=== PATIENT | male | born 1985 | race Caucasian/White ===

== ENCOUNTER 2021-12-09 16:59 | Emergency (ER) | payer SELFPAY ==
[2021-12-09 17:36] VITALS: BP 148/67; PULSE 105; RESP 18; TEMP 37; O2SAT 100; BMI 26.1
[2021-12-09 18:33] LABS: MANUAL DIFF FLAG NO
[2021-12-09 18:37] LABS: Basophils Percent Auto 0.3 % (0-2); Eosinophils Absolute Auto 0.1 X10*3/uL (0.0-0.4); Eosinophils Percent Auto 1.2 % (0-4); Imm Gran Abs Auto 0.04 X10*3/uL (0.00-0.03); Imm Gran Pct Auto 0.3 % (0.0-0.4); Lymphocytes Absolute Auto 2.6 X10*3/uL (1.2-4.9); Lymphocytes Percent Auto 21.7 % (20-40); Mean Corpuscular HGB Conc 33.3 g/dl (31.0-36.0); Mean Corpuscular Hemoglobin 31.5 pg (27.0-33.0); Mean Corpuscular Volume 94.4 fL (80.0-98.0); Mean Platelet Volume 9.5 fL (9.4-12.4); Monocytes Absolute Auto 1.2 X10*3/uL (0.1-1.2); Monocytes Percent Auto 9.7 % (2-11); Neutrophils Absolute Auto 8.1 x10*3/uL (2.0-8.3); Neutrophils Percent Auto 66.8 % (45-73); Platelet Count 269 X10*3/uL (160-400); Red Blood Count 5.72 X10*6/uL (4.60-5.80); Red Cell Distribution Width 11.9 % (11.0-16.0); White Blood Count 12.1 X10*3/uL (4.8-10.8)
[2021-12-09 18:58] LABS: Anion Gap 14 (12-20); Blood Urea Nitrogen 14 mg/dL (9-16); Calcium 9.6 mg/dL (8.4-10.2); Carbon Dioxide 25 mmol/L (22-29); Chloride 102 mmol/L (96-108); Creatinine Clr Calc Pharmacy 140.5; Estimated Glomerular Filt Rate > 60; Glucose Random 86 mg/dL (60-115); Potassium 3.8 mmol/L (3.3-5.1); Sodium 137 mmol/L (135-145)
--- NOTE | 2021-12-09 21:38 | ED.GENADULT ---
HPI - General Adult General Chief complaint: General Medical Stated complaint: infection on mouth Time Seen by Provider: 12/09/21 21:38 Source: patient Mode of arrival: ambulatory Limitations: no limitations History of Present Illness HPI narrative: Patient is small pimple at the base of left nare are about 6 days ago [facility] started on Augmentin which he took for 2 days and swelling got worse changed to clindamycin as the swelling continued to increase, for last 24 hours swelling has increased significantly no fever no chills patient noticed small amount of pus coming out at the base of the nose also. No headache no seizures no history of MRSA or similar abscess in the past Related Data Allergies Allergy/AdvReac Type Severity Reaction Status Date / Time No Known Allergies Allergy Verified 12/09/21 17:40 [No Known Allergies*] Review of Systems Review of Systems: Yes all other systems are reviewed and are negative PMFSH Past Medical History Medical History TBI (traumatic brain injury) Social History Social History Advance Directives: No Advance Directives Information Provided: No Physical Exam ED Vital Signs: Vital Signs - 24 hr 12/09/21 17:36 12/09/21 22:28 12/10/21 00:27 Temperature 98.6 F 98.9 F Pulse Rate 105 H 92 84 Respiratory Rate 18 20 16 Blood Pressure 148/67 H 135/76 115/65 Pulse Oximetry 100 98 98 BMI result Body Mass Index 26.1 Const General: healthy appearing and comfortable Nutritional Appearance: average body habitus Orientation/consciousness: patient oriented x3 [facility] Face images: 1. Fluctuance swelling left upper lip small opening in the buccal surface of the lip with pus discharge Resp Auscultation: clear to auscultation bilaterally Cardio Rate: regular rate Rhythm: regular rhythm Heart sounds: S1 normal heart sound present and S2 normal heart sound present GI Inspection: Yes normal to inspection Palpation (GI): Soft to palpation and nontender Neuro General: patient oriented x3 Procedures Abscess I/D Site: lip Side (if applicable): left Local Anesthetic: lidocaine 2% Amount of anesthesia used (mL): 2 Technique: incised with blade Amount of fluid expressed (mL): 2 Sent for culture/gram staining?: Yes Irrigation: No Packing used?: none Medical Decision Making MDM Narrative Medical decision making narrative: Patient's upper lip abscess drain after I&D good amount of pus came out. Patient was given IV antibiotic of vanco and Zosyn advised to stay in the hospital for further IV antibiotic for patient refused to stay knowing that if infection get worse having headache high fever has to come back to the ER for IV antibiotics Lab Data Lab results reviewed: Yes I reviewed the patient's lab results. Result diagrams: 12/09/21 18:20 12/09/21 18:20 Labs: Lab Results 12/09/21 12/09/21 Range/Units 18:20 18:20 WBC 12.1 H (4.8-10.8) X10*3/uL RBC 5.72 (4.60-5.80) X10*6/uL Hgb 18.0 (14.0-18.0) g/dl Hct 54.0 H (42.0-52.0) % MCV 94.4 (80.0-98.0) fL MCH 31.5 (27.0-33.0) pg MCHC 33.3 (31.0-36.0) g/dl RDW 11.9 (11.0-16.0) % Plt Count 269 (160-400) X10*3/uL MPV 9.5 (9.4-12.4) fL Immature Gran % (Auto) 0.3 (0.0-0.4) % Neut % (Auto) 66.8 (45-73) % Lymph % (Auto) 21.7 (20-40) % [place] % (Auto) 9.7 (2-11) % Eos % (Auto) 1.2 (0-4) % Baso % (Auto) 0.3 (0-2) % Lymph # (Auto) 2.6 (1.2-4.9) X10*3/uL [place] # (Auto) 1.2 (0.1-1.2) X10*3/uL Eos # (Auto) 0.1 (0.0-0.4) X10*3/uL Baso # (Auto) 0.0 (0.0-0.2) X10*3/uL Abs Immat Gran (auto) 0.04 H (0.00-0.03) X10*3/uL Absolute Neuts (auto) 8.1 (2.0-8.3) x10*3/uL Absolute Nucleated RBC 0.000 (0.0-0.012) X10*3/uL Nucleated RBC % (auto) 0.0 (0.0-0.2) /100WBC Sodium 137 (135-145) mmol/L Potassium 3.8 (3.3-5.1) mmol/L Chloride 102 (96-108) mmol/L Carbon Dioxide 25 (22-29) mmol/L Anion Gap 14 (12-20) BUN 14 (9-16) mg/dL Creatinine 0.75 (0.5-1.4) mg/dL Estim Creat Clear Calc 140.5 Estimated GFR > 60 Random Glucose 86 (60-115) mg/dL Calcium 9.6 (8.4-10.2) mg/dL Discharge Plan Discharge Clinical Impression: Abscess of lip Patient Disposition: Home, Self-Care Instructions: Abscess (ED) Additional Instructions: Warm compresses as advised Take clindamycin as prescribed Report to the ER if worsening of the infection/swelling/headache/fever Interventions: ED Discharge Assessment Last Done: 12/10/21 00:29 Discharge Date/Time: 12/10/21 00:31
[2021-12-09] MEDS: Lidocaine HCl 2 % MPF 5 ML VIAL INFILTRATI (21:53)
[2021-12-09] MEDS: Piperacillin Sodium/Tazobactam 3.375 GM in 0.9 % Sodium Chloride 50 ML IV (22:23)
[2021-12-09 22:28] VITALS: BP 135/76; PULSE 92; RESP 20; TEMP 37.2; O2SAT 98
[2021-12-09] MEDS: vancomycin HCL 1,000 MG in 0.9 % Sodium Chloride 250 ML 270 MG IV (22:52)
[2021-12-10 00:27] VITALS: BP 115/65; PULSE 84; RESP 16; O2SAT 98
== END 2021-12-10 00:31 | disposition home or self-care (01) ==
PROVIDERS: Emergency Provider Internal Medicine
DX: K13.0 Diseases of lips (principal); Z79.899 Other long term (current) drug therapy
CPT/HCPCS: 10060; 36415; 80048; 85025; 87071; 87077; 87186; 87205; 96365; 96375; 99284; J2543; J3370